=== PATIENT | female | born 1985 | race Caucasian/White ===

== ENCOUNTER → 2016-08-24 | Outpatient (CLI) | payer OTHER ==
--- NOTE | 2016-08-25 07:44 | XR ---
EXAMINATION TYPE: XR foot complete RT DATE OF EXAM: 08/24/2016 10:52 AM COMPARISON: NONE HISTORY: Pain The osseous structures are intact and the joint spaces are preserved. There is no acute fracture or dislocation. IMPRESSION: 1. No acute fracture or dislocation. If symptoms persist, follow-up exam in 7 to 10 days could be ob tained.
== END | disposition home or self-care (01) ==
LOC: RADXRYALE 10:37
PROVIDERS: ATTEND Physician Assistant Medical
DX: M79.671 Pain in right foot (principal)